=== PATIENT | male | born 1995 | race Two or more races ===

== ENCOUNTER 2021-10-08 03:16 | Emergency (ER) | payer OTHER ==
[~2021-10-08] VITALS: Ht 172.7 cm; Wt 59.0 kg
--- NOTE | 2021-10-08 03:51 | NUR ---
TO ER BED 11. BIBSELF C/O DOG BITE ON R WRIST AND TIP OF PENIS @0000. PER PT TETANUS NOT UP TO DATE. 2 PUNCTURES AND ABRASION NOTED ON R FORARM. NON BLEEDING. PARTIAL AVULSION ON TIP OF PENIS. AWAITING MD SWAN
[2021-10-08] MEDS ORDERED: AMOX/CLAVULANATE 875 MG TABLET ONE (03:57)
[2021-10-08] MEDS ORDERED: TDAP [DIPH/PERTUSSIS/TET] 0.5 ML VIAL IM ONE ×2 (03:57→04:00)
[2021-10-08] MEDS ORDERED: AMOX/CLAVULANATE 875 MG TABLET PO ONE (04:00)
[2021-10-08] MEDS ORDERED: AMOX-430 PO (04:40)
--- NOTE | 2021-10-08 04:46 | NUR ---
XRAY AT BEDSIDE
--- NOTE | 2021-10-08 04:55 | NUR ---
Patient does not wish to proceed with medical care recommended by Dr. Rutherford. Patient given information related to possible complications, up to and including , which could occur as a result of leaving the hospital at this time. Patient verbalizes understanding of risks involved due to leaving against medical advice. Patient has signed AMA form.
[2021-10-08 05:15] VITALS: BP 115/72
== END 2021-10-08 05:16 | disposition left against medical advice (07) ==
LOC: ER 03:18
DX: S61.551A Open bite of right wrist, initial encounter (principal); S39.94XA Unspecified injury of external genitals, initial encounter; S51.831A Puncture wound without foreign body of right forearm, initial encounter; F20.9 Schizophrenia, unspecified; F17.200 Nicotine dependence, unspecified, uncomplicated; W54.0XXA Bitten by dog, initial encounter; Y93.89 Activity, other specified; Y92.89 Other specified places as the place of occurrence of the external cause; Y99.8 Other external cause status
CPT/HCPCS: 73110; 90715